=== PATIENT | female | born 1990 | race Caucasian/White ===

== ENCOUNTER 2021-11-06 00:36 | Emergency (ER) | payer BC ==
[2021-11-06] MEDS ORDERED: hydrALAZINE 20 MG/ML SDV IM STA (01:23)
[2021-11-06] MEDS ORDERED: cloNIDine 0.1 MG Tab PO STA (01:23)
[2021-11-06] MEDS ORDERED: Sodium Chloride 0.9% 10 ML Syringe FLUSH PRN (02:20)
[2021-11-06] MEDS ORDERED: Ondansetron 4 MG/2 ML SDV IVPUSH STA (02:21)
[2021-11-06] MEDS ORDERED: LORazepam 2 MG/ML SDV IVPUSH STA (02:22)
[2021-11-06] MEDS ORDERED: Labetalol 20 MG/4 ML Syringe IVPUSH STA (02:22)
[2021-11-06 03:58] LABS: CORONAVIRUS COVID-19 NAA NEGATIVE (NEGATIVE)
== END 2021-11-06 06:34 | disposition home or self-care (01) ==
LOC: FB.ED 00:36
DX: F10.10 Alcohol abuse, uncomplicated (principal); R11.2 Nausea with vomiting, unspecified; I10 Essential (primary) hypertension; Z79.899 Other long term (current) drug therapy; Z20.822 Contact with and (suspected) exposure to COVID-19
CPT/HCPCS: 0240U; 36415; 80053; 84484; 85025; 96372; 96374; 96375; 99284-25; A9270-GY; J0360; J2060; J2405; J3490